=== PATIENT | male | born 1945 | race Caucasian/White ===

== ENCOUNTER 2024-01-08 00:27 | Inpatient (IN) ==
[2024-01-08] MEDS ORDERED: IOPAMIDOL 100 ML BOTTLE IV ONE (00:28)
[2024-01-08 01:55] LABS: Basophils # (Auto) 0.02 K/mcL (0.00-0.30); Basophils % (Auto) 0.2 % (0.0-2.0); Eosinophils # (Auto) 0.24 K/mcL (0.00-0.70); Eosinophils % (Auto) 2.1 % (0.0-7.0); Hematocrit 42.2 % (40.1-51.0); Hemoglobin 13.6 g/dL (13.7-17.5); Lymphocytes # (Auto) 0.85 K/mcL (1.50-4.80); Lymphocytes % (Auto) 7.6 % (15.5-49.0); Mean Cell Volume 93.8 fL (80.0-100.0); Mean Corpuscular HGB Conc 32.2 g/dL (31.0-36.0); Mean Platelet Volume 9.2 fL (8.8-12.5); Monocytes % (Auto) 8.1 % (1.0-12.0); Neutrophils % (Auto) 81.6 % (38.0-78.0); Platelet Count 221 K/mcL (140-440); Red Cell Distribution Width 13.9 % (11.5-14.5); WBC 11.2 K/mcL (4.5-11.0)
[2024-01-08 02:20] LABS: ALT/SGPT 24 U/L (<40); AST/SGOT 20 U/L (<40); Albumin 4.2 gm/dL (3.2-5.2); Albumin/Globulin Ratio 1.4 (1.0-2.3); Alkaline Phosphatase 84 U/L (39-117); Bilirubin,Total 0.3 mg/dL (0.1-1.0); Blood Urea Nitrogen 25 mg/dL (8-23); Calcium 12.8 mg/dL (8.6-10.4); Carbon Dioxide 26 mmol/L (22-30); Chloride 99 mmol/L (96-108); Glomerular Filtration Rate 43; Glucose 152 mg/dL (70-105); Potassium 3.9 mmol/L (3.3-5.1); Sodium 139 mmol/L (133-145)
[2024-01-08 02:25] LABS: INR 0.9 (0.9-1.1); Partial Thromboplastin Time 23.8 sec (20.0-37.0); Prothrombin Time 13.1 sec (11.9-14.5)
[2024-01-08] MEDS: morphine 4 MG/ML VIAL IV ONE (02:52)
[2024-01-08] MEDS: ONDANSETRON 4 MG/2 ML VIAL IV ONE (03:27)
[2024-01-08] MEDS: HYDROmorphone 1 MG/ML SYRINGE IV PRN (03:27)
[2024-01-08] MEDS ORDERED: fentaNYL 250 MCG/5 ML VIAL IV ONE (04:23)
[2024-01-08] MEDS: LORazepam 2 MG/ML VIAL IV ONE (04:34)
[2024-01-08] MEDS: fentaNYL 100 MCG/2 ML VIAL IV ONE (04:36)
[2024-01-08 04:51] LABS: Appearance,Urine HAZY (Clear); Bilirubin,Urine Negative (Negative); Color,Urine YELLOW; Glucose,Urine (UA) Negative (Negative); Ketones,Urine Negative (Negative); Leukocyte Esterase,Urine 25 /uL (Negative); Mucus,Urine FEW /hpf; Nitrate,Urine Negative (Negative); Protein,Urine Negative (Negative); Specific Gravity,Urine 1.038 (1.000-1.035); Urine Hyaline Cast 1 /lph (0-2); Urine RBC 26 /hpf (0-3); Urine Squamous Epithelial Cell < 1 /hpf (0-4); Urine WBC 16 /hpf (0-4); Urobilinogen,Urine Negative
[2024-01-08] MEDS: cefTRIAXone 2 GM in DEXTROSE 5% IN WATER 50 ML IV ONE (07:28)
[2024-01-08] MEDS ORDERED: DEXAMETHASONE 10 MG/ML VIAL ONE (08:54)
[2024-01-08] MEDS ORDERED: GLYCOPYRROLATE 0.2 MG/ML VIAL IV ONE (08:54)
[2024-01-08] MEDS ORDERED: ONDANSETRON 4 MG/2 ML VIAL ONE (08:54)
[2024-01-08] MEDS ORDERED: LIDOCAINE 2% PF 5 ML VIAL ONE (08:54)
[2024-01-08] MEDS ORDERED: KETAMINE 50 MG/ML Syringe IV ONE ×2 (08:55→09:24)
[2024-01-08] MEDS ORDERED: PROPOFOL 200 MG/20 ML VIAL IV ONE (08:55)
[2024-01-08] MEDS ORDERED: fentaNYL 100 MCG/2 ML VIAL ONE ×2 (08:55→09:25)
[2024-01-08] MEDS ORDERED: FAMOTIDINE/PF 20 MG/2 ML VIAL IV ONE (08:58)
[2024-01-08] MEDS ORDERED: ceFAZolin 1 GM VIAL ONE (09:31)
[2024-01-08] MEDS: BUPIVACAINE 0.5% 50 ML VIAL IJ ONE (10:20)
[2024-01-08] MEDS ORDERED: ceFAZolin 3 GM in DEXTROSE 5% IN WATER 50 ML IV SCH (10:30)
[2024-01-08] MEDS ORDERED: IPRATROPIUM/ALBUTEROL 3 ML AMPUL.NEB NEB PRN (10:39)
[2024-01-08] MEDS ORDERED: fentaNYL 100 MCG/2 ML VIAL IV PRN (10:39)
[2024-01-08] MEDS ORDERED: BENZOCAINE/MENTHOL 1 LOZENGE PO PRN (10:39)
[2024-01-08] MEDS ORDERED: ONDANSETRON 4 MG/2 ML VIAL IV PRN ×2 (10:39→11:29)
[2024-01-08] MEDS ORDERED: HYDROmorphone 0.5 MG/0.5 ML SYRINGE IV PRN ×2 (10:39→11:29)
[2024-01-08] MEDS ORDERED: NALOXONE HCL 0.4 MG/ML VIAL IV PRN (10:39)
[2024-01-08] MEDS ORDERED: LACTATED RINGERS 250 ML IV PRN (10:39)
[2024-01-08] MEDS: ACETAMINOPHEN 1,000 MG/100 ML BAG IV ONE (10:46)
[2024-01-08] MEDS: LACTATED RINGERS 1,000 ML IV SCH (11:06)
[2024-01-08] MEDS ORDERED: ALBUTEROL SULFATE 2.5 MG/3 ML NEBULIZER NEB PRN (11:29)
[2024-01-08] MEDS ORDERED: DEXTROSE 31 GM ORAL.SUSP PO PRN (11:29)
[2024-01-08] MEDS ORDERED: DEXTROSE 50% 50 ML VIAL IV PRN (11:29)
[2024-01-08] MEDS: DOCUSATE SODIUM 100 MG CAPSULE PO SCH (11:59)
[2024-01-08] MEDS: INSULIN LISPRO 1 UNIT/0.01 ML UNIT SQ SCH (12:21)
[2024-01-08] MEDS: 0.9 % SODIUM CHLORIDE 10 ML SYRINGE IV SCH (13:46)
[2024-01-08] MEDS ORDERED: ALBUTEROL SULFATE 60 PUFF INHALER INH PRN (14:53)
[2024-01-08] MEDS ORDERED: hydrALAZINE 20 MG/ML VIAL IV PRN (14:55)
[2024-01-08] MEDS: METOPROLOL SUCCINATE 50 MG TAB.XL.24H PO SCH (15:26)
[2024-01-08] MEDS: GABAPENTIN 100 MG CAPSULE PO SCH (15:27)
[2024-01-08] MEDS ORDERED: ceFAZolin 1 GM VIAL IV SCH (17:00)
[2024-01-08] MEDS: cefTRIAXone 1 GM VIAL IV SCH (17:15)
[2024-01-08] MEDS: HYDROcodone/APAP 5/325MG TABLET PO PRN (19:06)
[2024-01-08] MEDS: SENNOSIDES 1 TABLET PO SCH (20:23)
[2024-01-08] MEDS: MONTELUKAST 10 MG TABLET PO SCH (20:28)
[2024-01-08] MEDS: lamoTRIgine 100 MG TABLET PO SCH (20:28)
[2024-01-09 06:37] LABS: Basophils # (Auto) 0.02 K/mcL (0.00-0.30); Basophils % (Auto) 0.2 % (0.0-2.0); Eosinophils # (Auto) 0.05 K/mcL (0.00-0.70); Eosinophils % (Auto) 0.4 % (0.0-7.0); Hematocrit 37.8 % (40.1-51.0); Hemoglobin 12.1 g/dL (13.7-17.5); Lymphocytes # (Auto) 1.06 K/mcL (1.50-4.80); Lymphocytes % (Auto) 8.8 % (15.5-49.0); Mean Cell Volume 93.6 fL (80.0-100.0); Mean Platelet Volume 9.9 fL (8.8-12.5); Monocytes # (Auto) 1.14 K/mcL (0.10-0.90); Monocytes % (Auto) 9.5 % (1.0-12.0); Neutrophils % (Auto) 80.7 % (38.0-78.0); Platelet Count 258 K/mcL (140-440); RBC 4.04 M/mcL (4.63-6.08); Red Cell Distribution Width 13.9 % (11.5-14.5)
[2024-01-09 06:52] LABS: ALT/SGPT 21 U/L (<40); AST/SGOT 68 U/L (<40); Albumin 3.9 gm/dL (3.2-5.2); Albumin/Globulin Ratio 1.6 (1.0-2.3); Alkaline Phosphatase 75 U/L (39-117); Bilirubin,Direct < 0.2 mg/dL (0-0.3); Bilirubin,Total 0.2 mg/dL (0.1-1.0); Blood Urea Nitrogen 23 mg/dL (8-23); Calcium 10.8 mg/dL (8.6-10.4); Carbon Dioxide 27 mmol/L (22-30); Chloride 100 mmol/L (96-108); Globulin 2.5 gm/dL (2.2-3.7); Glomerular Filtration Rate 40; Glucose 141 mg/dL (70-105); Lactate Dehydrogenase 164 U/L (135-225); Phosphorous 3.5 mg/dL (2.5-4.5); Potassium 3.7 mmol/L (3.3-5.1); Sodium 140 mmol/L (133-145); Triglycerides 147 mg/dL (<150); Uric Acid 7.8 mg/dL (2.5-8.0)
[2024-01-09] MEDS: ATORVASTATIN 40 MG TABLET PO SCH (08:42)
[2024-01-09] MEDS: METOPROLOL SUCCINATE 50 MG TAB.XL.24H PO SCH (08:42)
[2024-01-09] MEDS: HEPARIN 5,000 UNIT/ML VIAL SQ SCH (13:21)
[2024-01-10 07:10] LABS: Basophils # (Auto) 0.01 K/mcL (0.00-0.30); Basophils % (Auto) 0.1 % (0.0-2.0); Eosinophils # (Auto) 0.17 K/mcL (0.00-0.70); Eosinophils % (Auto) 1.4 % (0.0-7.0); Hematocrit 37.7 % (40.1-51.0); Hemoglobin 12.2 g/dL (13.7-17.5); Lymphocytes # (Auto) 1.05 K/mcL (1.50-4.80); Lymphocytes % (Auto) 8.9 % (15.5-49.0); Mean Cell Volume 92.4 fL (80.0-100.0); Mean Corpuscular HGB Conc 32.4 g/dL (31.0-36.0); Mean Platelet Volume 9.3 fL (8.8-12.5); Monocytes # (Auto) 1.14 K/mcL (0.10-0.90); Monocytes % (Auto) 9.6 % (1.0-12.0); Neutrophils % (Auto) 79.7 % (38.0-78.0); Platelet Count 225 K/mcL (140-440); RBC 4.08 M/mcL (4.63-6.08); WBC 11.8 K/mcL (4.5-11.0)
[2024-01-10 07:30] LABS: ALT/SGPT 20 U/L (<40); AST/SGOT 87 U/L (<40); Albumin 3.8 gm/dL (3.2-5.2); Albumin/Globulin Ratio 1.4 (1.0-2.3); Alkaline Phosphatase 80 U/L (39-117); Bilirubin,Direct < 0.2 mg/dL (0-0.3); Bilirubin,Total 0.3 mg/dL (0.1-1.0); Blood Urea Nitrogen 20 mg/dL (8-23); Carbon Dioxide 26 mmol/L (22-30); Chloride 102 mmol/L (96-108); Globulin 2.7 gm/dL (2.2-3.7); Glomerular Filtration Rate 47; Glucose 137 mg/dL (70-105); Lactate Dehydrogenase 204 U/L (135-225); Phosphorous 2.5 mg/dL (2.5-4.5); Potassium 3.6 mmol/L (3.3-5.1); Sodium 141 mmol/L (133-145); Triglycerides 172 mg/dL (<150); Uric Acid 6.9 mg/dL (2.5-8.0)
[2024-01-10] MEDS: POLYETHYLENE GLYCOL 3350 17 GM PACKET PO PRN (08:20)
[2024-01-10] MEDS: SENNOSIDES 1 TABLET PO SCH (08:22)
[2024-01-10] MEDS: ACETAMINOPHEN 325 MG TABLET PO PRN (08:28)
[2024-01-11 06:03] LABS: Basophils # (Auto) 0.03 K/mcL (0.00-0.30); Basophils % (Auto) 0.2 % (0.0-2.0); Eosinophils # (Auto) 0.16 K/mcL (0.00-0.70); Eosinophils % (Auto) 1.3 % (0.0-7.0); Hemoglobin 12.1 g/dL (13.7-17.5); Lymphocytes # (Auto) 1.18 K/mcL (1.50-4.80); Lymphocytes % (Auto) 9.8 % (15.5-49.0); Mean Cell Volume 91.6 fL (80.0-100.0); Mean Corpuscular HGB Conc 32.7 g/dL (31.0-36.0); Mean Platelet Volume 9.9 fL (8.8-12.5); Monocytes # (Auto) 1.19 K/mcL (0.10-0.90); Monocytes % (Auto) 9.9 % (1.0-12.0); Neutrophils % (Auto) 78.6 % (38.0-78.0); Platelet Count 249 K/mcL (140-440); RBC 4.04 M/mcL (4.63-6.08); WBC 12.1 K/mcL (4.5-11.0)
[2024-01-11 06:45] LABS: ALT/SGPT 33 U/L (<40); AST/SGOT 117 U/L (<40); Albumin 3.7 gm/dL (3.2-5.2); Albumin/Globulin Ratio 1.3 (1.0-2.3); Alkaline Phosphatase 109 U/L (39-117); Bilirubin,Direct 0.2 mg/dL (<0.3); Bilirubin,Total 0.4 mg/dL (0.1-1.0); Blood Urea Nitrogen 20 mg/dL (8-23); Calcium 10.9 mg/dL (8.6-10.4); Carbon Dioxide 26 mmol/L (22-30); Chloride 101 mmol/L (96-108); Globulin 2.9 gm/dL (2.2-3.7); Glomerular Filtration Rate 51; Glucose 158 mg/dL (70-105); Lactate Dehydrogenase 239 U/L (135-225); Phosphorous 2.6 mg/dL (2.5-4.5); Potassium 3.5 mmol/L (3.3-5.1); Sodium 139 mmol/L (133-145); Triglycerides 147 mg/dL (<150); Uric Acid 6.2 mg/dL (2.5-8.0)
[2024-01-11] MEDS: POTASSIUM CHLORIDE 20 MEQ PACKET PO ONE (08:00)
== END 2024-01-11 09:13 | DRG 493 ==
LOC: ED 00:27 → SUR 09:00 → MEDSUR 11:15
PROVIDERS: ADMIT Internal Medicine; ATTEND Student in an Organized Health Care Education/Training Program

== ENCOUNTER 2024-03-28 12:04 | Inpatient (IN) ==
[2024-03-27 15:51] LABS: Basophils # (Auto) 0.07 K/mcL (0.00-0.30); Basophils % (Auto) 0.9 % (0.0-2.0); Eosinophils # (Auto) 0.47 K/mcL (0.00-0.70); Eosinophils % (Auto) 5.8 % (0.0-7.0); Lymphocytes # (Auto) 0.75 K/mcL (1.50-4.80); Lymphocytes % (Auto) 9.3 % (15.5-49.0); Mean Cell Volume 88.2 fL (80.0-100.0); Mean Corpuscular HGB Conc 31.4 g/dL (31.0-36.0); Mean Platelet Volume 8.6 fL (8.8-12.5); Monocytes # (Auto) 0.57 K/mcL (0.10-0.90); Monocytes % (Auto) 7.1 % (1.0-12.0); Neutrophils % (Auto) 76.5 % (38.0-78.0); Platelet Count 301 K/mcL (140-440); RBC 3.97 M/mcL (4.63-6.08); Red Cell Distribution Width 14.3 % (11.5-14.5); WBC 8.1 K/mcL (4.5-11.0)
[2024-03-27 15:58] LABS: Blood Urea Nitrogen 17 mg/dL (8-23); Calcium 9.3 mg/dL (8.6-10.4); Carbon Dioxide 24 mmol/L (22-30); Chloride 100 mmol/L (96-108); Glomerular Filtration Rate 80; Glucose 106 mg/dL (70-105); Potassium 4.2 mmol/L (3.3-5.1); Sodium 137 mmol/L (133-145)
[2024-03-27 18:12] LABS: Estimated Average Glucose(eAG) 120 mg/dL; Hemoglobin A1C 5.8 % Hgb (4.0-6.0)
[2024-03-28] MEDS ORDERED: ONDANSETRON 4 MG/2 ML VIAL ONE (15:28)
[2024-03-28] MEDS ORDERED: TRANEXAMIC ACID 1,000 MG/10 ML VIAL ONE (15:28)
[2024-03-28] MEDS ORDERED: DEXAMETHASONE 10 MG/ML VIAL ONE (15:28)
[2024-03-28] MEDS ORDERED: LIDOCAINE 2% PF 5 ML VIAL ONE (15:28)
[2024-03-28] MEDS ORDERED: PROPOFOL 200 MG/20 ML VIAL IV ONE (15:28)
[2024-03-28] MEDS ORDERED: KETAMINE 50 MG/ML Syringe IV ONE (15:28)
[2024-03-28] MEDS ORDERED: GLYCOPYRROLATE 0.2 MG/ML VIAL IV ONE (15:28)
[2024-03-28] MEDS ORDERED: fentaNYL 100 MCG/2 ML VIAL ONE (15:29)
[2024-03-28] MEDS ORDERED: ceFAZolin 1 GM VIAL ONE (15:52)
[2024-03-28] MEDS: ceFAZolin 3 GM in DEXTROSE 5% IN WATER 50 ML IV SCH (15:55)
[2024-03-28] MEDS ORDERED: HYDROmorphone 0.5 MG/0.5 ML SYRINGE ONE (16:00)
[2024-03-28] MEDS ORDERED: METHOCARBAMOL 1,000 MG/10 ML VIAL IV PRN (16:02)
[2024-03-28] MEDS ORDERED: LACTATED RINGERS 250 ML IV PRN ×2 (16:02→18:11)
[2024-03-28] MEDS ORDERED: fentaNYL 100 MCG/2 ML VIAL IV PRN ×2 (16:02→18:11)
[2024-03-28] MEDS ORDERED: morphine 2 MG/ML VIAL IV PRN (16:02)
[2024-03-28] MEDS ORDERED: NALOXONE HCL 0.4 MG/ML VIAL IV PRN ×3 (16:02→19:51)
[2024-03-28] MEDS ORDERED: IPRATROPIUM/ALBUTEROL 3 ML AMPUL.NEB NEB PRN (16:02)
[2024-03-28] MEDS ORDERED: ONDANSETRON 4 MG/2 ML VIAL IV PRN ×3 (16:02→19:51)
[2024-03-28] MEDS ORDERED: BENZOCAINE/MENTHOL 1 LOZENGE PO PRN (16:02)
[2024-03-28] MEDS: ceFAZolin 2 GM in DEXTROSE 5% IN WATER 50 ML IV SCH (16:09)
[2024-03-28] MEDS: LIDOCAINE 1% 20 ML VIAL SQ ONE (16:12)
[2024-03-28] MEDS ORDERED: PHENYLephrine 1 MG/10 ML SYRINGE (ANEST) ONE (16:33)
[2024-03-28] MEDS ORDERED: ePHEDrine 50 MG/ML AMPUL IV ONE (16:33)
[2024-03-28] MEDS ORDERED: HYDROCODONE/APAP 7.5/325MG TABLET PO PRN (16:46)
[2024-03-28] MEDS ORDERED: VANCOMYCIN PER PHARMACY IV SCH (17:13)
[2024-03-28] MEDS ORDERED: KETOCONAZOLE 2% TOP CRM 15GM TUBE TOPICAL PRN (17:16)
[2024-03-28] MEDS ORDERED: HYDROcodone/APAP (PP) 7.5/325MG TABLET (#4) PO SCH (17:30)
[2024-03-28] MEDS: ACETAMINOPHEN 1,000 MG/100 ML BAG IV ONE (17:41)
[2024-03-28] MEDS: TRANEXAMIC ACID 1,000 MG/10 ML VIAL IV SCH (18:11)
[2024-03-28] MEDS ORDERED: diphenhydrAMINE 50 MG/ML VIAL IV PRN (18:11)
[2024-03-28] MEDS: METHOCARBAMOL 1,000 MG/10 ML VIAL IV PRN (18:15)
[2024-03-28] MEDS: MEPERIDINE 25 MG/ML VIAL IV PRN (18:21)
[2024-03-28] MEDS: MEPERIDINE 50 MG/ML VIAL ONE (18:59)
[2024-03-28] MEDS: PIPERACILLIN SODIUM/TAZOBACTAM 4.5 GM in DEXTROSE 5% IN WATER 50 ML IV ONE (19:24)
[2024-03-28] MEDS ORDERED: ACETAMINOPHEN 500 MG TABLET PO SCH (20:00)
[2024-03-28] MEDS ORDERED: DEXTROSE 50% 50 ML VIAL IV PRN (20:00)
[2024-03-28] MEDS ORDERED: DEXTROSE 31 GM ORAL.SUSP PO PRN (20:00)
[2024-03-28] MEDS: morphine 4 MG/ML VIAL IV PRN (20:05)
[2024-03-28] MEDS: 0.9 % SODIUM CHLORIDE 1,000 ML IV SCH (20:09)
[2024-03-28] MEDS: VANCOMYCIN 1,000 MG in 0.9 % SODIUM CHLORIDE 250 ML IV SCH (20:10)
[2024-03-28] MEDS: LACTATED RINGERS 1,000 ML IV SCH ×2 (20:20→20:21)
[2024-03-28] MEDS: morphine 4 MG/ML VIAL IV ONE ×2 (20:20→21:49)
[2024-03-28] MEDS: morphine 4 MG/ML VIAL IM ONE (20:21)
[2024-03-28] MEDS: lamoTRIgine 100 MG TABLET PO SCH (20:34)
[2024-03-28] MEDS: LOSARTAN 50 MG TABLET PO SCH (20:34)
[2024-03-28] MEDS: ATORVASTATIN 40 MG TABLET PO SCH (20:35)
[2024-03-28] MEDS: DOCUSATE SODIUM 100 MG CAPSULE PO SCH (20:35)
[2024-03-28] MEDS: MONTELUKAST 10 MG TABLET PO SCH (20:35)
[2024-03-28] MEDS: GABAPENTIN 100 MG CAPSULE PO SCH (20:35)
[2024-03-28] MEDS: INSULIN LISPRO 1 UNIT/0.01 ML UNIT SQ SCH (20:35)
[2024-03-28] MEDS: SENNOSIDES 1 TABLET PO SCH (20:35)
[2024-03-28] MEDS: 0.9 % SODIUM CHLORIDE 10 ML SYRINGE IV SCH (20:36)
[2024-03-28] MEDS: PIPERACILLIN SODIUM/TAZOBACTAM 3.375 GM in DEXTROSE 5% IN WATER 100 ML IV SCH (21:51)
[2024-03-28] MEDS: HYDROCODONE/APAP 7.5/325MG TABLET PO PRN (22:15)
[2024-03-28] MEDS: PIPERACILLIN SODIUM/TAZOBACTAM 4.5 GM in 0.9 % SODIUM CHLORIDE 100 ML IV SCH (22:19)
[2024-03-29 06:52] LABS: Basophils # (Auto) 0.03 K/mcL (0.00-0.30); Basophils % (Auto) 0.3 % (0.0-2.0); Eosinophils # (Auto) 0.01 K/mcL (0.00-0.70); Eosinophils % (Auto) 0.1 % (0.0-7.0); Hematocrit 31.6 % (40.1-51.0); Lymphocytes # (Auto) 0.59 K/mcL (1.50-4.80); Lymphocytes % (Auto) 6.5 % (15.5-49.0); Mean Cell Volume 89.3 fL (80.0-100.0); Mean Corpuscular HGB Conc 31.6 g/dL (31.0-36.0); Mean Platelet Volume 8.9 fL (8.8-12.5); Monocytes # (Auto) 0.49 K/mcL (0.10-0.90); Monocytes % (Auto) 5.4 % (1.0-12.0); Neutrophils % (Auto) 87.3 % (38.0-78.0); Platelet Count 282 K/mcL (140-440); RBC 3.54 M/mcL (4.63-6.08); Red Cell Distribution Width 14.1 % (11.5-14.5); WBC 9.1 K/mcL (4.5-11.0)
[2024-03-29] MEDS: ACETAMINOPHEN 500 MG TABLET PO SCH (07:09)
[2024-03-29] MEDS: oxyCODONE IR 5 MG TABLET PO SCH (07:09)
[2024-03-29 07:30] LABS: ALT/SGPT 16 U/L (<40); AST/SGOT 16 U/L (<40); Albumin 3.2 gm/dL (3.2-5.2); Albumin/Globulin Ratio 1.3 (1.0-2.3); Alkaline Phosphatase 168 U/L (39-117); Bilirubin,Total 0.3 mg/dL (0.1-1.0); Blood Urea Nitrogen 17 mg/dL (8-23); C-Reactive Protein 4.11 mg/dL (0.03-0.80); Calcium 8.5 mg/dL (8.6-10.4); Carbon Dioxide 23 mmol/L (22-30); Chloride 100 mmol/L (96-108); Globulin 2.4 gm/dL (2.2-3.7); Glomerular Filtration Rate 70; Glucose 178 mg/dL (70-105); Potassium 4.5 mmol/L (3.3-5.1); Sodium 136 mmol/L (133-145)
[2024-03-29] MEDS: VITAMIN B COMPLEX 1 CAPSULE PO SCH (08:41)
[2024-03-29] MEDS: MULTIVIT,THER IRON,CA,FA & MIN 1 TABLET PO SCH (08:41)
[2024-03-29] MEDS: METOPROLOL SUCCINATE 50 MG TAB.XL.24H PO SCH (08:41)
[2024-03-29] MEDS: VITAMIN D3 25 MCG TABLET PO SCH (08:41)
[2024-03-29] MEDS: LACTOBACILLUS 1 CAPSULE PO SCH (08:41)
[2024-03-29] MEDS: POLYETHYLENE GLYCOL 3350 17 GM PACKET PO SCH (08:42)
[2024-03-29] MEDS: HEPARIN 5,000 UNIT/ML VIAL SQ SCH (08:52)
[2024-03-29] MEDS ORDERED: VITAMIN K2 100 MCG PO SCH (09:00)
[2024-03-29] MEDS: METHOCARBAMOL 500 MG TABLET PO PRN (14:44)
[2024-03-30 08:30] LABS: Basophils # (Auto) 0.08 K/mcL (0.00-0.30); Basophils % (Auto) 1.1 % (0.0-2.0); Eosinophils # (Auto) 0.33 K/mcL (0.00-0.70); Eosinophils % (Auto) 4.4 % (0.0-7.0); Hemoglobin 9.1 g/dL (13.7-17.5); Lymphocytes # (Auto) 1.15 K/mcL (1.50-4.80); Lymphocytes % (Auto) 15.5 % (15.5-49.0); Mean Cell Volume 90.4 fL (80.0-100.0); Mean Corpuscular HGB Conc 30.3 g/dL (31.0-36.0); Mean Platelet Volume 8.8 fL (8.8-12.5); Monocytes # (Auto) 0.68 K/mcL (0.10-0.90); Monocytes % (Auto) 9.2 % (1.0-12.0); Neutrophils % (Auto) 69.3 % (38.0-78.0); Platelet Count 266 K/mcL (140-440); RBC 3.32 M/mcL (4.63-6.08); Red Cell Distribution Width 14.4 % (11.5-14.5); WBC 7.4 K/mcL (4.5-11.0)
[2024-03-30 08:51] LABS: C-Reactive Protein 2.72 mg/dL (0.03-0.80)
[2024-03-30 08:52] LABS: ALT/SGPT 13 U/L (<40); AST/SGOT 29 U/L (<40); Albumin 3.2 gm/dL (3.2-5.2); Albumin/Globulin Ratio 1.3 (1.0-2.3); Alkaline Phosphatase 150 U/L (39-117); Bilirubin,Total 0.3 mg/dL (0.1-1.0); Blood Urea Nitrogen 19 mg/dL (8-23); Calcium 8.6 mg/dL (8.6-10.4); Carbon Dioxide 26 mmol/L (22-30); Chloride 101 mmol/L (96-108); Globulin 2.4 gm/dL (2.2-3.7); Glomerular Filtration Rate 70; Glucose 118 mg/dL (70-105); Potassium 3.8 mmol/L (3.3-5.1); Sodium 137 mmol/L (133-145)
[2024-03-30] MEDS: ACETAMINOPHEN 325 MG TABLET PO PRN (14:32)
[2024-03-30] MEDS: HYDROCODONE/APAP 7.5/325MG TABLET PO PRN (17:34)
[2024-03-30] MEDS: IPRATROPIUM/ALBUTEROL 3 ML AMPUL.NEB NEB PRN (22:36)
[2024-03-31 06:21] LABS: Basophils # (Auto) 0.07 K/mcL (0.00-0.30); Basophils % (Auto) 0.8 % (0.0-2.0); Eosinophils # (Auto) 0.29 K/mcL (0.00-0.70); Eosinophils % (Auto) 3.4 % (0.0-7.0); Hematocrit 31.6 % (40.1-51.0); Lymphocytes # (Auto) 0.97 K/mcL (1.50-4.80); Lymphocytes % (Auto) 11.4 % (15.5-49.0); Mean Cell Volume 87.8 fL (80.0-100.0); Mean Corpuscular HGB Conc 31.6 g/dL (31.0-36.0); Mean Platelet Volume 8.9 fL (8.8-12.5); Monocytes # (Auto) 0.67 K/mcL (0.10-0.90); Monocytes % (Auto) 7.9 % (1.0-12.0); Neutrophils % (Auto) 75.9 % (38.0-78.0); Platelet Count 312 K/mcL (140-440); Red Cell Distribution Width 14.4 % (11.5-14.5); WBC 8.5 K/mcL (4.5-11.0)
[2024-03-31 06:44] LABS: ALT/SGPT 13 U/L (<40); AST/SGOT 24 U/L (<40); Albumin 3.4 gm/dL (3.2-5.2); Albumin/Globulin Ratio 1.3 (1.0-2.3); Alkaline Phosphatase 155 U/L (39-117); Bilirubin,Direct < 0.2 mg/dL (0-0.3); Bilirubin,Total 0.3 mg/dL (0.1-1.0); Blood Urea Nitrogen 19 mg/dL (8-23); C-Reactive Protein 3.58 mg/dL (0.03-0.80); Calcium 9.1 mg/dL (8.6-10.4); Carbon Dioxide 26 mmol/L (22-30); Chloride 105 mmol/L (96-108); Globulin 2.6 gm/dL (2.2-3.7); Glomerular Filtration Rate 63; Glucose 133 mg/dL (70-105); Lactate Dehydrogenase 159 U/L (135-225); Phosphorous 3.1 mg/dL (2.5-4.5); Sodium 142 mmol/L (133-145); Triglycerides 244 mg/dL (<150); Uric Acid 3.5 mg/dL (2.5-8.0)
[2024-03-31] MEDS: VANCOMYCIN 1,000 MG in 0.9 % SODIUM CHLORIDE 250 ML IV SCH (09:39)
[2024-04-02] MEDS: CARVEDILOL 12.5 MG TABLET PO SCH (08:45)
[2024-04-03] MEDS ORDERED: ENALAPRILAT 1.25 MG/ML VIAL IV PRN (07:59)
[2024-04-03 08:30] VITALS: TEMP 98; O2SAT 95
[2024-04-03] MEDS: CARVEDILOL 12.5 MG TABLET PO SCH (08:54)
[2024-04-03] MEDS ORDERED: CARVEDILOL 12.5 MG TABLET PO SCH (17:30)
== END 2024-04-03 11:57 | DRG 239 ==
LOC: MEDSUR 12:04
PROVIDERS: ADMIT Orthopaedic Surgery; ATTEND Internal Medicine